=== PATIENT | male | born 1940 | race Caucasian/White ===

== ENCOUNTER 2023-11-07 11:55 | Emergency (ER) | payer MEDICARE, BC, SELFPAY ==
[2023-11-07 12:03] VITALS: BP 155/70
[2023-11-07 16:07] LABS: % Basophils 0.2 % (0-2); % Eosinophils 0.9 % (0-6); % Immature Granulocytes 0.2 % (0-0.5); % Lymphocytes 16.6 % (20.5-51.1); % Monocytes 6.5 % (1.7-9.3); % Neutrophils 75.6 % (42.2-75.2); Absolute Eosinophils 0.1 10^3/uL (0-0.7); Absolute Lymphocytes 1.8 10^3/uL (1.2-3.4); Absolute Monocytes 0.7 10^3/uL (0.1-0.6); Hemoglobin 13.8 g/dL (13.0-18.0); Mean Corp Hgb Conc. 32.9 g/dL (33.0-37.0); Mean Corpuscular Hgb 26.7 pg (27.0-31.0); Mean Corpuscular Volume 81.4 fL (80.0-94.0); Mean Platelet Volume 9.1 fL (7.4-10.4); Nucleated Red Blood Cells % 0 % (-); Platelet Count 179 10^3/uL (130-400); Red Blood Cell Count 5.16 10^6/uL (4.70-6.10); Red Cell Dist. Width 13.9 % (11.5-14.5); White Blood Cell Count 10.6 10^3/uL (4.8-10.8)
[2023-11-07 16:18] LABS: ALT (SGPT) 18 U/L (0-50); AST (SGOT) 28 U/L (17-59); Albumin 4.3 g/dl (3.5-5.0); Alkaline Phosphatase 103 U/L (38-126); Blood Urea Nitrogen 21 mg/dl (9-20); Calcium 9.4 mg/dl (8.4-10.2); Carbon Dioxide 29 mmol/L (22-30); Chloride 108 mmol/L (98-107); Glucose 107 mg/dl (70-99); Potassium 4.2 mmol/L (3.5-5.1); Sodium 139 mmol/L (135-145); Total Bilirubin 1.5 mg/dl (0.2-1.3); Total Protein 6.8 g/dl (6.3-8.2); eGFR > 60.00
--- NOTE | 2023-11-07 16:34 | ED.GENMED ---
History of Present Illness
General
Chief Complaint: Back Pain
Source: family
Exam Limitations: dementia
Time Seen by Provider: 11/07/23 15:03
Nursing documentation reviewed up to this point in time: agreed with
Travel History
Have you had any contact with someone who has COVID-19?: No
Do you have any symptoms of coronavirus? Fever > 100 degrees, chills, cough, shortness of breath, sore throat, loss of taste or smell, muscle aches, or headache?: No
History of Present Illness
History of Present Illness:
pt is a 82 y/o M with h/o dementia
here with R sided back pain after fall down 12 steps 2 days ago
witnessed by . she says he was trying to help her carry heavy detergent to the basement and he slipped falling onto his back and slid down the carpeted steps. he did not hit his head. was able to get up but has had a lot of pain with changing
positions
she gave him tramadol yesterday and today
he is still complaining of pain
worse with deep breathing
no fever, vomiting, cp, new confusion, change in mental status, thinners, new leg weakness.
Past History
Past History
ED Past Medical History: Arrthythmia (Bradycardia, paroxysmal SVT), CAD, CVA, GERD, HTN, Hypercholesterolemia, NIDDM, Hypothyroidism, Other (Vascular Dementia, chest pain), Other (present, peripheral arterial disease) and Other (nephrolithiasis,
migraine, herpes zoster in 2009, hiatal hernia, Kidney stones)
ED Past Surgical History: Cardiac (PTCA with stent 2009, stent placement distal aorta) and Other (Carotid endarterectomy in 2011, nasal surgery in 2016)
Social History
Tobacco: Non-smoker
Alcohol: None
Drug: None
Personal:
Living: with family
Employment: Retired
Family History
Family History: Other (reviewed and Noncontributory)
Phy Exam
Physical Exam
Physical Exam:
GENERAL: Alert , in no apparent distress, dementia
HEAD: NCAT
NECK: no midline tenderness, active ROM intact, no paraspinal muscle tenderness;
EYE: pupils equal and reactive, EOMs intact.
ENT: o/p clr, mmm. no hemotympanum
CARDIAC: Regular rate and rhythm, no edema
LUNGS: Clear breath sounds bilaterally, has pain with deep breathing, no acute respiratory distress, no wheezes/rales/rhonchi
ABDOMEN: Soft, mild RUQ tendreness; mostly righ tlower rib tenderness; no r/g, no cvat
NEUROLOGICAL: Alert and oriented x 1-2, no focal neuro deficits, CN intact, 5/5 strength, sensation intact
ableto stand and ambulate with assistnace, shuffles feet;
SKIN: Warm and dry,
MUSCULOSKELETAL: No edema, well perfused.
PSYCH: dementia but pleasant
Course
Orders/Labs/Results
Orders:
Orders
11/07/23 15:42
CT Chest/abd/pel W Iv Cont Urgent
Reason For Exam: fall down 12 steps, right back/flank pain
11/07/23 15:58
Complete Blood Count/With Diff Urgent
Comprehensive Metabolic Panel Urgent
11/07/23 16:37
CT Head W/o Iv Contrast Urgent
Comment:
Reason For Exam: fall down 12 steps
11/07/23 17:57
Acetaminophen [Tylenol] 650 mg PO NOW STA
Incentive Spirometry [Rx Incentive Spirometry] [RESP] Urgent
Frequency: q1h while awake
11/07/23 18:21
Losartan [Cozaar] 100 mg PO NOW STA
11/07/23 18:36
Tramadol HCl [Ultram] 50 mg PO NOW STA
11/07/23 19:31
HydrALAZINE [Apresoline] 5 mg IV NOW STA
11/07/23 19:33
Electrocardiogram (*1) Urgent
Reason for Study: Hypertension, Benign
EKG- Treatment ONCE
Abnormal Lab Results
11/07/23
15:58
MCH 26.7 L pg
(27.0-31.0)
MCHC 32.9 L g/dL
(33.0-37.0)
Absolute Neuts (auto) 8.0 H 10^3/uL
(1.4-6.5)
Absolute Monos (auto) 0.7 H 10^3/uL
(0.1-0.6)
Neutrophils % 75.6 H %
(42.2-75.2)
Lymphocytes % 16.6 L %
(20.5-51.1)
Chloride 108 H mmol/L
(98-107)
BUN 21 H mg/dl
(9-20)
Glucose 107 H mg/dl
(70-99)
Total Bilirubin 1.5 H mg/dl
(0.2-1.3)
11/07/23 15:58
11/07/23 15:58
Vital Signs
Initial and Last Documented VS:
Initial Vital Signs
Temp Pulse Resp BP Pulse Ox
98 F 55 16 155/70 98
11/07/23 12:03 11/07/23 12:03 11/07/23 12:03 11/07/23 12:03 11/07/23 12:03
Last Documented Vital Signs
Temp Pulse Resp BP Pulse Ox
98 F 63 18 180/72 100
11/07/23 12:03 11/07/23 19:40 11/07/23 18:29 11/07/23 20:39 11/07/23 18:29
MDM/Problems Addressed
Differential Diagnosis Includes:
rib fx, kidney injruy,liver injury
MDM/Problems Addressed:
82 yo M wwith dementia
here from home with who is primary historian
fall 2 days ago down 12 steps, slid on back/buttocks, no head strike
has chronically shuffling gait an dhas been able to walk but has pain
she gave 1 dose tramadol yesterday and 1 today
pain seems to be in right lower back
here pt is wel appearing
dementia but pleasant
right lower posterior an danterior rib tenderness, mild RUQ tendenress
d/w dr lux --> given age and limited history will CT
ct showed 2 nondisplaced lower rib fx, no ptx, no plerual effusion
pt was in some pain, missed dose of his losaratan
and was hypertnesive on dsicharge
200/90
other than pain in his rib no other symptoms
cr normal
initially given tramadol and his losartan which didn't really help
dw dr. lux - > .ekg frequent PACs, no ischeima
bp came down with small dose hdyralaxizne 180/80
pt's will check it at home
suspect it is sitautional
and related to pain
d/c home, tylenol, tramadol, incentive spirometer.
*Critical Care Note
Total Time (30-74mins, 75-104mins- exclusive of procedures): Not Applicable
ED Attending Note
-
Portions of this chart may have been created with voice recognition software.� Occasional wrong word or��sound alike� substitutions may have occurred due to the inherent limitations of voice recognition software.
Discharge Plan
Departure
Patient Disposition: Home (Routine Discharge)
Date of Disposition: 11/07/23
Time of Disposition: 20:48
Patient with high blood pressure during this ER visit?: Yes
Condition: Fair
Covid-19: Not Applicable
Discharge Problem:
Fracture, ribs
Instructions: Rib Fracture (DC), BLOOD PRESSURE
Prescriptions:
No Action
tamsulosin 0.4 MG capsule
0.4 mg PO HS
levothyroxine 75 MCG tablet
75 mcg PO DAILY AT 0700
cholecalciferol (vitamin D3) 1,000 UNITS tablet
2,000 units PO DAILY
donepezil 23 MG tablet
23 mg PO HS
memantine 28 MG capsule,sprinkle,ER 24hr
28 mg PO DAILY
acetaminophen [Tylenol Extra Strength] 500 MG tablet
1,000 mg PO Q6HPRN PRN (Reason: mild pain/headache/fever)
aspirin 81 MG tablet,delayed release (DR/EC)
81 mg PO HS
rosuvastatin 10 MG tablet
10 mg PO HS
omeprazole 20 MG capsule,delayed release(DR/EC)
20 mg PO DAILY
cholestyramine-aspartame [Cholestyramine Light] 1 PACKET powder in packet
1 packet PO BID
meclizine 12.5 MG tablet
12.5 mg PO Q8HPRN PRN (Reason: dizziness, vertigo) Qty: 15 0RF
losartan 50 MG tablet
100 mg PO HS
tramadol 50 MG tablet
50 mg PO Q8H PRN (Reason: PAIN)
Referrals:
Chyna Barraza MD [Family Provider] - Follow up in 2-3 days
Activity Restrictions/Additional Instructions:
Jame has 2 rib fractures, his 11th and 12th ribs on the right side. There is no other signs of trauma. You can give him an incentive spirometer to help him take deep breaths every 2 hours while awake.
For pain you can use Tylenol 3 times a day and you can also use his tramadol as needed.
Follow-up with the family doctor next week. Return to the ER for any worsening symptoms.
HIS BLOODP RESSURE WAS ELEVATED
BE SURE TO TAKE IT 2 TIMES A DAY AND RECORD NUMBERS
THIS NEEDS TO BE CHECKED WITH HIS FAMILY DOCTOR NEXT WEEK
RETURN FOR ANY COCNERNS
Interventions
Interventions:
*Risk Screen - Suicide Last Done: 11/07/23 12:38
*General Assessment Last Done: 11/07/23 12:38
*Neglect/Abuse Screening Last Done: 11/07/23 12:38
ED- Fall Risk Assessment Last Done: 11/07/23 12:38
*ED COVID-19 Vaccine History Last Done: 11/07/23 12:38
*Nursing Disposition Last Done: 11/07/23 21:01
ED-Musculoskeletal Assessment Last Done: 11/07/23 15:46
Discharge Date and Time
Discharge Date/Time: 11/07/23 21:01
[2023-11-07] MEDS: TYLENOL 650 MG PO (18:09)
[2023-11-07 18:29] VITALS: BP 211/80
[2023-11-07] MEDS: COZAAR 100 MG PO (18:29)
[2023-11-07] MEDS: ULTRAM 50 MG PO (18:41)
[2023-11-07] MEDS: APRESOLINE 5 MG IV (19:34)
[2023-11-07 19:40] VITALS: BP 201/82
[2023-11-07 20:39] VITALS: BP 180/72
== END 2023-11-07 21:01 | disposition home or self-care (01) ==
LOC: EMR 11:55
PROVIDERS: Physician Assistant; EMERGENCY PHYSICIAN Emergency Medicine; FAMILY PHYSICIAN Internal Medicine
DX: S22.31XA Fracture of one rib, right side, initial encounter for closed fracture (principal); W19.XXXA Unspecified fall, initial encounter; F03.90 Unspecified dementia, unspecified severity, without behavioral disturbance, psychotic disturbance, mood disturbance, and anxiety; R00.1 Bradycardia, unspecified; I47.10 Supraventricular tachycardia, unspecified; I25.10 Atherosclerotic heart disease of native coronary artery without angina pectoris; K21.9 Gastro-esophageal reflux disease without esophagitis; I10 Essential (primary) hypertension; E78.00 Pure hypercholesterolemia, unspecified; E03.9 Hypothyroidism, unspecified; E11.51 Type 2 diabetes mellitus with diabetic peripheral angiopathy without gangrene; Z86.73 Personal history of transient ischemic attack (TIA), and cerebral infarction without residual deficits; Z87.442 Personal history of urinary calculi; Z95.5 Presence of coronary angioplasty implant and graft
CPT/HCPCS: 99284; 96374; 70450; 71260; 74177; 80053; 85025; 93005; Q9967

== ENCOUNTER → 2023-11-13 09:30 | Outpatient (REF) | payer MEDICARE, BC, SELFPAY ==
[2023-11-13 12:57] LABS: ALT (SGPT) 22 U/L (0-50); AST (SGOT) 37 U/L (17-59); Albumin 3.8 g/dl (3.5-5.0); Alkaline Phosphatase 97 U/L (38-126); Blood Urea Nitrogen 19 mg/dl (9-20); Calcium 9.4 mg/dl (8.4-10.2); Carbon Dioxide 26 mmol/L (22-30); Chloride 111 mmol/L (98-107); Glucose 115 mg/dl (70-99); HDL Cholesterol 50 mg/dl; LDL Cholesterol, Calculated 48 mg/dl; Potassium 3.8 mmol/L (3.5-5.1); Sodium 142 mmol/L (135-145); Total Bilirubin 0.8 mg/dl (0.2-1.3); Total Cholesterol 129 mg/dl (50-199); Total Protein 6.1 g/dl (6.3-8.2); Triglyceride 155 mg/dl (10-149); Very Low Density Lipoprotein 31 mg/dl (0-30); eGFR 54.85
[2023-11-13 13:17] LABS: TSH Reflex To Free T4 1.45 uIU/ml (0.47-4.68)
[2023-11-13 13:29] LABS: % Basophils 0.7 % (0-2); % Eosinophils 2.8 % (0-6); % Immature Granulocytes 0.3 % (0-0.5); % Lymphocytes 28.3 % (20.5-51.1); % Monocytes 7.3 % (1.7-9.3); % Neutrophils 60.6 % (42.2-75.2); Absolute Basophils 0.1 10^3/uL (0-0.2); Absolute Eosinophils 0.2 10^3/uL (0-0.7); Absolute Lymphocytes 2.1 10^3/uL (1.2-3.4); Absolute Monocytes 0.5 10^3/uL (0.1-0.6); Absolute Neutrophils 4.5 10^3/uL (1.4-6.5); Hematocrit 40.9 % (39.0-52.0); Hemoglobin 13.4 g/dL (13.0-18.0); Mean Corp Hgb Conc. 32.8 g/dL (33.0-37.0); Mean Corpuscular Volume 82.3 fL (80.0-94.0); Mean Platelet Volume 10.1 fL (7.4-10.4); Nucleated Red Blood Cells % 0 % (-); Platelet Count 231 10^3/uL (130-400); Red Blood Cell Count 4.97 10^6/uL (4.70-6.10); Red Cell Dist. Width 14.3 % (11.5-14.5); White Blood Cell Count 7.4 10^3/uL (4.8-10.8)
== END ==
LOC: HWLAB 09:30
PROVIDERS: ATTENDING PHYSICIAN Internal Medicine
DX: Z23 Encounter for immunization (principal); I25.10 Atherosclerotic heart disease of native coronary artery without angina pectoris; I10 Essential (primary) hypertension; F03.90 Unspecified dementia, unspecified severity, without behavioral disturbance, psychotic disturbance, mood disturbance, and anxiety
CPT/HCPCS: 36415; 80053; 80061; 84443; 85025

== ENCOUNTER → 2024-06-24 11:24 | Outpatient (REF) | payer MEDICARE, BC, SELFPAY ==
[2024-06-24 15:38] LABS: ALT (SGPT) 19 U/L (0-50); AST (SGOT) 28 U/L (17-59); Albumin 3.8 g/dl (3.5-5.0); Alkaline Phosphatase 78 U/L (38-126); Blood Urea Nitrogen 18 mg/dl (9-20); Calcium 9.4 mg/dl (8.4-10.2); Carbon Dioxide 31 mmol/L (22-30); Chloride 105 mmol/L (98-107); Glucose 106 mg/dl (70-99); Potassium 4.1 mmol/L (3.5-5.1); Sodium 143 mmol/L (135-145); Total Bilirubin 1.1 mg/dl (0.2-1.3); Total Protein 5.9 g/dl (6.3-8.2); eGFR > 60.00
== END ==
LOC: HWLAB 11:24
PROVIDERS: ATTENDING PHYSICIAN Internal Medicine
DX: R63.4 Abnormal weight loss (principal)
CPT/HCPCS: 36415; 80053

== ENCOUNTER 2024-08-17 19:00 | Inpatient (IN) | payer MEDICARE, BC, SELFPAY ==
[2024-08-13 22:45] VITALS: BP 221/75
[2024-08-13 22:46] VITALS: BP 221/75
[2024-08-13 22:48] VITALS: BP 220/83
[2024-08-13 23:00] VITALS: BP 200/74
[2024-08-13 23:02] LABS: Urine Albumin 1+ (Neg - Trace); Urine Bilirubin Negative (Negative); Urine Character Clear (Clear); Urine Color Yellow; Urine Glucose Negative (Negative); Urine Ketone Trace (Negative); Urine Leukocyte Negative (Negative); Urine Nitrite Negative (Negative); Urine Occult Blood Trace (Negative); Urine Urobilinogen Negative (Neg - 1+)
[2024-08-13 23:11] LABS: % Basophils 0.4 % (0-2); % Eosinophils 1.2 % (0-6); % Immature Granulocytes 0.3 % (0-0.5); % Lymphocytes 16.9 % (20.5-51.1); % Monocytes 5.5 % (1.7-9.3); % Neutrophils 75.7 % (42.2-75.2); Absolute Eosinophils 0.1 10^3/uL (0-0.7); Absolute Lymphocytes 1.7 10^3/uL (1.2-3.4); Absolute Monocytes 0.6 10^3/uL (0.1-0.6); Absolute Neutrophils 7.7 10^3/uL (1.4-6.5); Hematocrit 42.8 % (39.0-52.0); Mean Corp Hgb Conc. 32.7 g/dL (33.0-37.0); Mean Corpuscular Volume 82.5 fL (80.0-94.0); Mean Platelet Volume 9.1 fL (7.4-10.4); Nucleated Red Blood Cells % 0 % (-); Platelet Count 193 10^3/uL (130-400); Red Blood Cell Count 5.19 10^6/uL (4.70-6.10); Red Cell Dist. Width 13.2 % (11.5-14.5); White Blood Cell Count 10.2 10^3/uL (4.8-10.8)
[2024-08-13 23:15] LABS: Urine Squamous Cell None seen /LPF (Few)
[2024-08-13 23:16] LABS: Urine Bacteria Few (Negative); Urine Red Blood Cell 0-2 /HPF (0-2); Urine White Cell 0-2 /HPF (0-5)
[2024-08-13 23:23] LABS: ALT (SGPT) 27 U/L (0-50); AST (SGOT) 52 U/L (17-59); Alkaline Phosphatase 93 U/L (38-126); Blood Urea Nitrogen 20 mg/dl (9-20); Calcium 9.4 mg/dl (8.4-10.2); Carbon Dioxide 28 mmol/L (22-30); Chloride 106 mmol/L (98-107); Estimated Creatinine Clearance 47 ml/min; Glucose 118 mg/dl (70-99); Potassium 4.6 mmol/L (3.5-5.1); Sodium 141 mmol/L (135-145); Total Protein 6.3 g/dl (6.3-8.2); eGFR > 60.00
--- NOTE | 2024-08-13 23:46 | ED.GENMED ---
History of Present Illness
General
Chief Complaint: Change in Mental Status
Source: patient, spouse and family
Exam Limitations: altered mental status and dementia
Time Seen by Provider: 08/13/24 23:08
Nursing documentation reviewed up to this point in time: agreed with
History of Present Illness
History of Present Illness:
83-year-old male with dementia presents with subacute mental status change accompanied by his spouse who he lives with and his daughter who lives nearby, apparently for the past week he has not been eating very much, increasingly confused, more
withdrawn, apparently slipped off the couch family could not get him up EMS was called, no noted fevers or chills, no coughing no vomiting
Past History
Past History
ED Past Medical History: Arrthythmia (Bradycardia, paroxysmal SVT), CAD, CVA, GERD, HTN, Hypercholesterolemia, NIDDM, Hypothyroidism, Other (Vascular Dementia, chest pain), Other (present, peripheral arterial disease) and Other (nephrolithiasis,
migraine, herpes zoster in 2009, hiatal hernia, Kidney stones)
ED Past Surgical History: Cardiac (PTCA with stent 2009, stent placement distal aorta) and Other (Carotid endarterectomy in 2011, nasal surgery in 2016)
Social History
Tobacco: Non-smoker
Alcohol: None
Drug: None
Personal:
Living: with family
Employment: Retired
Family History
Family History: Other (reviewed and Noncontributory)
Review of Systems
Review of Systems
All Other Systems: Not applicable
Constitutional: Denies fever or fatigue
Phy Exam
Physical Exam
Physical Exam:
Physical Exam
General: Elderly male demented confused no overt signs of head or neck trauma
Neck: No tongue bite lips are slightly dry
Heart: s1/s2 regular rate and rhythm, no murmur. equal radial pulses.
Lungs: no acute respiratory distress. clear bilaterally
Abdomen: Soft nontender
Neuro: Globally weak answer simple commands oriented to person no rigidity
Skin: no rash
Psychiatric: Affect is flat
Extremities: No pain with range of motion of the hips
Course
Orders/Labs/Results
Orders:
Orders
08/13/24 22:44
CT Head W/o Iv Contrast Urgent
Comment:
Reason For Exam: change in mentation
08/13/24 22:45
Straight cath- Treatment ONCE
08/13/24 22:54
CMP [Comprehensive Metabolic Panel] Urgent
Complete Blood Count/With Diff Urgent
Creatine Phosphokinase Urgent
Comment: ADD ON
Urinalysis Reflex To Culture Urgent
Date Specimen was Collected: 08/13/24
Time Specimen was Collected: 22:45
Urine Microscopic Reflex Cult Urgent
08/13/24 23:46
0.9% Sodium Chloride 1000 ml [Nss] 1,000 ml IV BOLUS
08/13/24 23:47
Add On- LAB Urgent
Tests Added?: cpk
CR Chest Portable - 1 View Urgent
Comment:
Reason For Exam: confusion
Reason Study Needs to be Portable: Patient Unstable
08/13/24 23:55
COVID-19 Antigen Urgent
Source: Nasal Swab
Influenza A+B Rapid Molecular Urgent
LUCIANO Source: Nasal Swab
Specimen Description:
08/14/24 00:30
Case Management Consult ONCE
Case Management Consult: Discharge Planning
Request for Physical Therapy [NOTICE] Routine
08/14/24 01:02
HydrALAZINE [Apresoline] 10 mg IV NOW STA
Losartan [Cozaar] 100 mg PO NOW STA
08/14/24 06:00
Physical Therapy Consult [Pt Eval And Treat] IN AM
Activity Level: Out of Bed-Early Mobility
Abnormal Lab Results
08/13/24
22:54
MCHC 32.7 L g/dL
(33.0-37.0)
Absolute Neuts (auto) 7.7 H 10^3/uL
(1.4-6.5)
Neutrophils % 75.7 H %
(42.2-75.2)
Lymphocytes % 16.9 L %
(20.5-51.1)
Glucose 118 H mg/dl
(70-99)
Creatine Kinase 816 H U/L
(55-170)
Urine Ketones Trace A
(Negative)
Ur Occult Blood Reflex Trace A
(Negative)
Urine Bacteria (Reflex) Few A
(Negative)
Urine Albumin (Reflex) 1+ A
(Neg - Trace)
08/13/24 22:54
08/13/24 22:54
Vital Signs
Initial and Last Documented VS:
Initial Vital Signs
Temp Pulse Resp BP Pulse Ox
99.0 F 61 12 221/75 100
08/13/24 22:45 08/13/24 22:45 08/13/24 22:45 08/13/24 22:45 08/13/24 22:45
Last Documented Vital Signs
Temp Pulse Resp BP Pulse Ox
99.0 F 63 16 173/116 99
08/13/24 22:45 08/14/24 01:37 08/14/24 01:30 08/14/24 01:37 08/14/24 00:15
*Critical Care Note
Total Time (30-74mins, 75-104mins- exclusive of procedures): Not Applicable
ED Attending Note
-
Portions of this chart may have been created with voice recognition software.� Occasional wrong word or��sound alike� substitutions may have occurred due to the inherent limitations of voice recognition software.
Discharge Plan
Departure
Patient Disposition: Admit
Date of Disposition: 08/14/24
Time of Disposition: 00:39
Admit to: Med/Surg
Presentation/result/management discussed w/ accepting MD/DO: Hospitalist
Patient with high blood pressure during this ER visit?: Yes
Condition: Fair
Discharge Problem:
Generalized weakness, Confusion
Prescriptions:
No Action
tamsulosin 0.4 MG capsule
0.4 mg PO HS
levothyroxine 75 MCG tablet
75 mcg PO DAILY AT 0700
cholecalciferol (vitamin D3) 1,000 UNITS tablet
2,000 units PO DAILY
donepezil 23 MG tablet
23 mg PO HS
memantine 28 MG capsule,sprinkle,ER 24hr
28 mg PO DAILY
acetaminophen [Tylenol Extra Strength] 500 MG tablet
1,000 mg PO Q6HPRN PRN (Reason: mild pain/headache/fever)
aspirin 81 MG tablet,delayed release (DR/EC)
81 mg PO HS
rosuvastatin 10 MG tablet
10 mg PO HS
omeprazole 20 MG capsule,delayed release(DR/EC)
20 mg PO DAILY
cholestyramine-aspartame [Cholestyramine Light] 1 PACKET powder in packet
1 packet PO BID
meclizine 12.5 MG tablet
12.5 mg PO Q8HPRN PRN (Reason: dizziness, vertigo) Qty: 15 0RF
losartan 50 MG tablet
100 mg PO HS
tramadol 50 MG tablet
50 mg PO Q8H PRN (Reason: PAIN)
Referrals:
Dusty Enrique MD [Family Provider] -
Interventions
Interventions:
*Risk Screen - Suicide Last Done: 08/13/24 22:45
*General Assessment Last Done: 08/13/24 22:45
*Neglect/Abuse Screening Last Done: 08/13/24 22:45
ED- Fall Risk Assessment Last Done: 08/14/24 00:17
*ED COVID-19 Vaccine History Last Done: 08/13/24 22:45
ED- Neurological Assessment Last Done: 08/14/24 00:17
ED- Cardiac Assessment Last Done: 08/14/24 00:17
Discharge Date and Time
Print Language: TURKMEN
[2024-08-13] MEDS: NSS 1000 IV (23:56)
[2024-08-14] VITALS (17 sets, daily range): BP systolic 132–215; BP diastolic 56–116
[2024-08-14 00:32] LABS: COVID-19 Antigen Negative (Negative)
[2024-08-14 00:59] LABS: Creatine Phosphokinase 816 U/L (55-170)
[2024-08-14] MEDS: COZAAR 100 MG PO ×2 (01:37→21:08)
[2024-08-14] MEDS: APRESOLINE 10 MG IV (01:37)
--- NOTE | 2024-08-14 01:45 | EDRN ---
Patients family updated on patient and admission status
--- NOTE | 2024-08-14 02:30 | EDRN ---
Report given to JONO Archer, patients family at bedside, waiting on admission
--- NOTE | 2024-08-14 03:36 | HPS.HSE ---
Family Physician
-
Family Physician: Dusty Enrique
Chief Complaint
-
Increased Confusion / Frequent Falls
History of Present Illness
Patient is an 83y M with PMH significant for senile dementia, hypertension and ASCVD / prior stroke who presents to ED for evaluation of increasing confusion and ambulatory dysfunction. History obtained from family at the bedside. Patient is
unable to contribute to history given baseline dementia. Family states that patient has been more confused than usual over the past several days. He has had increased frequency of falls. He is unsteady at baseline and does not use a walker
despite encouragement / reminders from family. Patient has suffered several falls as a result. No noted head injury / trauma. No apparent LOC / syncope.
Family denies any specific / focal symptoms of late including cough, dyspnea, N/V or complaints.
Patient does have chronic diarrhea x years for which he currently takes colestipol. No new meds or changes in medications recently.'
No known sick contacts.
Medical History
Past Medical History
Past Medical History: Reports Other
Additional Past Medical History:
Senile Dementia
Hypertension
Hypothyroidism
ASCVD (CVA, Carotid Stenosis, CAD, PAD)
GERD
Rosacea
Migraine Headaches
SVT
Nephrolithiasis
Past Surgical History: Reports Other
Additional Past Surgical History:
Left CEA
Septoplasty
Social History
Tobacco: Former Smoker (Quit smoking > 50 years ago.)
Alcohol: Occasional (Rare)
Drug: None
Living: With Family
Family History
Family History: Not pertinent
Allergies / Home Medications
Allergies reflects when Allergies were last updated in [facility].
Home Medications with original date entered in [facility]
Allergy/Medication List:
Allergies
Allergy/AdvReac Type Severity Reaction Status Date / Time
No Known Allergies Allergy Verified 08/13/24 22:53
Home Medications
tamsulosin 0.4 mg capsule 0.4 mg PO HS Urinary issue 03/30/10
cholecalciferol (vitamin D3) 25 mcg (1,000 unit) tablet 2,000 units PO DAILY Supplement 05/24/15
levothyroxine 75 mcg tablet 75 mcg PO DAILY AT 0700 Thyroid 05/24/15
donepezil 23 mg tablet 23 mg PO HS DEMENTIA 06/02/16
memantine 28 mg capsule sprinkle,extended release 24hr 28 mg PO DAILY DEMENTIA 06/02/16
rosuvastatin 10 mg tablet 10 mg PO HS High cholesterol 04/08/19
omeprazole 20 mg capsule,delayed release 20 mg PO DAILY Gastrointestinal issue 03/06/20
losartan 50 mg tablet 100 mg PO HS 09/25/20
colestipol 1 gram tablet 2 g PO BID 08/14/24
Review of Systems
-
History Source: Family
A 12 point ROS was completed and negative except as noted: Yes
Constitutional: Denies Fever
EENT: Denies Sore Throat
Respiratory: Denies Cough or Trouble Breathing
Cardiac: Denies Chest Pain
Abdomen/GI: Reports Diarrhea (chronic); Denies Abdominal Pain, Nausea, Vomiting, Bloody Stools or Black Stools
: Denies Flank Pain or Bleeding
Musculoskeletal: Denies Joint Pain or Edema
Neurological: Reports Other (Falls / Gait dysfunction)
Psych: Reports Dementia
Physical Exam
Vital Signs
Vital Signs
Temp Pulse Resp BP Pulse Ox
99.0 F 65 17 177/67 99
08/13/24 22:45 08/14/24 02:45 08/14/24 02:30 08/14/24 02:42 08/14/24 00:15
Physical Exam
General: Other (83y M with evident dementia. Awake and interactive. Follows commands. Somewhat restless / pulling at medical devices.)
HEENT: Moist mucous membranes and PERRLA
Respiratory: Clear; No Wheezes, Rales or Rhonchi
Cardiac: S1/S2 and Regular Rhythm; No Murmur
GI: Soft, Non Tender, Non Distended and Normal Bowel Sounds
Musculoskeletal: No Clubbing, No Cyanosis and Other (Trace ankle edema bilaterally.)
Neuro: Awake, Alert and Nonfocal/grossly intact; No Oriented
Laboratory Results
-
08/13/24 22:54
08/13/24 22:54
Laboratory Results
Total Bilirubin 1.0 mg/dl (0.2-1.3) 08/13/24 22:54
AST 52 U/L (17-59) 08/13/24:54
ALT 27 U/L (0-50) 08/13/24:54
Alkaline Phosphatase 93 U/L (38-126) 08/13/24 22:54
Impression/Plan
-
A/P: Patient is an 83y M with PMH significant for senile dementia, prior CVA and hypertension who presents to ED for evaluation of recent increase in confusion, gait dysfunction and frequent falls.
Senile Dementia
Ambulatory Dysfunction
Frequent Falls secondary to the above
- Observe overnight for further evaluation and treatment.
- No evidence at present of any acute process, infection, etc.
- ? progression of underlying dementia.
- PT / OT evaluations.
- CM eval for discharge planning / placement.
- Continue current dementia med regimen for now (see below).
Chronic Diarrhea
- Multiple years of symptoms - currently controlled with colestipol.
- Will continue colestipol and follow frequency of stooling.
- Would D/C PPI.
- Would also consider cessation of Namenda / Aricept which may also be contributing to diarrhea and are likely of little benefit in regards to dementia.
ASCVD
- Stable. No new focal deficits, chest pain, etc.
- No longer on ASA per outpatient med list.
- Continue statin therapy.
Benign Hypertension
- BP elevated in the ED.
- Continue losartan and adjust regimen as needed for improved control.
- IV hydralazine PRN for now.
Hypothyroidism
- Continue current T4 supplementation.
- Update TFTs.
BPH
- Continue tamsulosin.
- Bladder scan protocol.
GERD
- Trial off of PPI as noted above.
- Monitor for any apparent reflux / discomfort / etc.
DVT Prophylaxis: SCDs
Code Status: DNR
[2024-08-14 06:19] LABS: Hematocrit 40.7 % (39.0-52.0); Hemoglobin 13.5 g/dL (13.0-18.0); Mean Corp Hgb Conc. 33.2 g/dL (33.0-37.0); Mean Corpuscular Hgb 27.6 pg (27.0-31.0); Mean Corpuscular Volume 83.2 fL (80.0-94.0); Mean Platelet Volume 9.2 fL (7.4-10.4); Platelet Count 175 10^3/uL (130-400); Red Blood Cell Count 4.89 10^6/uL (4.70-6.10); Red Cell Dist. Width 13.2 % (11.5-14.5)
[2024-08-14 06:46] LABS: Blood Urea Nitrogen 17 mg/dl (9-20); Calcium 8.8 mg/dl (8.4-10.2); Carbon Dioxide 28 mmol/L (22-30); Chloride 107 mmol/L (98-107); Estimated Creatinine Clearance 86 ml/min; Glucose 95 mg/dl (70-99); Potassium 3.9 mmol/L (3.5-5.1); Sodium 139 mmol/L (135-145); eGFR > 60.00
[2024-08-14] MEDS: SEROQUEL 12.5 MG PO (07:29)
[2024-08-14] MEDS: SYNTHROID 75 MCG PO (07:29)
--- NOTE | 2024-08-14 08:47 | W.PN.HOSP.TC ---
Today's Communication/Plan
-
Seroquel prescribed monitor blood pressure trend
Attempt PT/OT evaluation
Protective intervention
Assessment / Plan
Assessment / Plan
Impression:
Patient is an 83y M with PMH significant for senile dementia, prior CVA and hypertension who presents to ED for evaluation of recent increase in confusion, gait dysfunction and frequent falls.
Progressive dementia
Agitation.
Ambulatory dysfunction with frequent falls
Accelerated hypertension/hypertensive urgency likely secondary to agitation
Other conditions:
Chronic diarrhea
ASCVD.
Benign hypertension
Hypothyroidism
Hypothyroidism
BPH
GERD
Plan:
Senile dementia
Ambulatory dysfunction.
Frequent falls.
Initial workup with no evidence of acute process including infection, TIA/CVA.
CT scan consistent with chronic vascular changes without acute process
Agitated.
Initiated on Seroquel.
Attempt PT/OT evaluation.
Case management consultation for possible placement
Continue preadmission memantine and donepezil.
Hypertension
Hypertensive urgency likely secondary to agitation.
Continue losartan
Continue IV hydralazine.
Monitor blood pressure trend with agitation control initiated on Seroquel
May need further adjustment with addition of second agent
ASCVD
- Stable. No new focal deficits, chest pain, etc.
- No longer on ASA per outpatient med list.
- Continue statin therapy.
Chronic Diarrhea
- Multiple years of symptoms - currently controlled with colestipol.
- Will continue colestipol and follow frequency of stooling.
- Would D/C PPI.
- Would also consider cessation of Namenda / Aricept which may also be contributing to diarrhea and are likely of little benefit in regards to dementia.
Hypothyroidism
- Continue current T4 supplementation.
- Update TFTs.
BPH
- Continue tamsulosin.
- Bladder scan protocol.
GERD
- Trial off of PPI as noted above.
- Monitor for any apparent reflux / discomfort / etc.
DVT Prophylaxis: SCDs
Code Status: DNR
Anticipated Discharge: 24 - 48 hours
Subjective/Interval History
-
Date of Service: August 14, 2024
Objective Data
-
Labs:
Laboratory Results
08/13/24 08/14/24
22:54 06:06
WBC 10.2 10.0
Hgb 14.0 13.5
Hct 42.8 40.7
Plt Count 193 175
Sodium 141 139
Potassium 4.6 3.9
Chloride 106 107
Carbon Dioxide 28 28
BUN 20 17
Creatinine 1.1 0.5 L
Glucose 118 H 95
Calcium 9.4 8.8
Total Bilirubin 1.0
AST 52
ALT 27
Alkaline Phosphatase 93
Vital Signs:
Vital Signs
Temp Pulse Resp BP Pulse Ox
99.0 F 92 20 193/76 98
08/13/24 22:45 08/14/24 07:36 08/14/24 07:15 08/14/24 07:00 08/14/24 06:45
I&O
08/13/24 08/14/24 08/15/24
06:59 06:59 06:59
Output Total 220 / 220
Balance -220 / -220
Physical Exam
-
General: Well Developed, No Apparent Distress and Other (Disheveled)
HEENT: Normocephalic, Atraumatic and Moist Mucous Membranes
Respiratory: Clear to Auscultation
Cardiac: Regular Rhythm and S1/S2; Negative Murmur, Rub or Gallop
GI: Soft, Nontender, Nondistended and Normal Bowel Sounds; Negative Organomegaly
Rectal: Deferred by Provider
Musculoskeletal: No Clubbing, No Cyanosis and No Edema
Skin: Negative Rash
Neuro: Awake, Alert, Nonfocal/Grossly Intact and Other (Not conversive)
[2024-08-14] MEDS: APRESOLINE 5 MG IV ×2 (09:00→19:43)
--- NOTE | 2024-08-14 13:45 | PTCARENOTE ---
Patient here for from ED with ambulatory dysfunction. Frequent falls at home. Patient oriented to self, agitated and aggressive towards staff while completing incontinent care. Bed alarm active.
[2024-08-14] MEDS: CRESTOR 10 MG PO (21:08)
[2024-08-14] MEDS: FLOMAX 0.4 MG PO (21:08)
[2024-08-14] MEDS: TYLENOL 650 MG PO (21:09)
[2024-08-15 03:30] VITALS: BP 157/64
[2024-08-15] MEDS: SYNTHROID 75 MCG PO (06:11)
[2024-08-15 07:50] VITALS: BP 112/67
--- NOTE | 2024-08-15 08:38 | CM ---
Addendum entered by Kristen Contreras 08/15/24 15:58:
CM met with dr Thompson. Discussed family may be interested in hospice. Family will discuss and update RN tomorrow. CM rec's Psych eval for aggression management. Pt must be off all restraints, 1:1 and VMT as well as without IM Haldol/Ativan within
24-48hrs of discharge to SNF/LTC.
Addendum entered by Kristen Contreras 08/15/24 13:41:
RN reached out to CM regarding pt. Family stating that they are aware he was not able to completely participate in PT. They would like for PT to attempt to re-evaluate pt. If he is unable or refusing again, family to discuss LTC placement. CM/SW
following on Friday will need to f/u to discuss further with and/or dtr.
CM will continue to follow to ensure a safe and timely dc.
Original Note:
CM reviewed chart. Pt w/pmhx dementia who presented from home for increased confusion and agitation. Per PT eval -' Patient aggressive throughout session and not able to follow cues for safety and physically pushing at therapists when sitting. Not
safe at this time to progress functional assessment.' Care on-going.
CM/SW will continue to follow to ensure a safe and timely dc when medically stable. Pt confused-unable to sign/understand IMM. Please reconsult CM/SW when pt behaviors have improved and PT is able to appropriately evaluate pt.
[2024-08-15 11:13] VITALS: BP 122/52
--- NOTE | 2024-08-15 13:43 | W.PN.HOSP.TC ---
Today's Communication/Plan
-
Case management consultation for placement with option of possible rehab if cooperative with physical therapy, long-term placement with transition to hospice (advanced dementia with failure to thrive) if not.
Plan of care discussed with patient's family at the bedside
Assessment / Plan
Assessment / Plan
Impression:
Patient is an 83y M with PMH significant for senile dementia, prior CVA and hypertension who presents to ED for evaluation of recent increase in confusion, gait dysfunction and frequent falls.
Progressive dementia
Agitation.
Ambulatory dysfunction with frequent falls
Accelerated hypertension/hypertensive urgency likely secondary to agitation
Other conditions:
Chronic diarrhea
ASCVD.
Benign hypertension
Hypothyroidism
Hypothyroidism
BPH
GERD
Plan:
Senile dementia
Ambulatory dysfunction.
Frequent falls.
Initial workup with no evidence of acute process including infection, TIA/CVA.
CT scan consistent with chronic vascular changes without acute process
Agitated initially on admission improved with a single dose of Seroquel and now close to be somnolent.
Change Seroquel to at bedtime
Stop donepezil given interaction and risk of QT prolongation
Attempt PT/OT evaluation.
Case management consultation for possible placement
Continue preadmission memantine
Case management consultation for placement with option of possible rehab if cooperative with physical therapy, long-term placement with transition to hospice (advanced dementia with failure to thrive) if not.
Hypertension
Hypertensive urgency likely secondary to agitation.
Continue losartan
Continue IV hydralazine.
Monitor blood pressure trend with agitation control initiated on Seroquel
May need further adjustment with addition of second agent
ASCVD
- Stable. No new focal deficits, chest pain, etc.
- No longer on ASA per outpatient med list.
- Continue statin therapy.
Chronic Diarrhea
- Multiple years of symptoms - currently controlled with colestipol.
- Will continue colestipol and follow frequency of stooling.
- Would D/C PPI.
- Would also consider cessation of Namenda / Aricept which may also be contributing to diarrhea and are likely of little benefit in regards to dementia.
Hypothyroidism
- Continue current T4 supplementation.
- Update TFTs.
BPH
- Continue tamsulosin.
- Bladder scan protocol.
GERD
- Trial off of PPI as noted above.
- Monitor for any apparent reflux / discomfort / etc.
DVT Prophylaxis: SCDs
Code Status: DNR
Anticipated Discharge: 24 - 48 hours
Subjective/Interval History
-
Date of Service: August 15, 2024
Objective Data
-
Vital Signs:
Vital Signs
Temp Pulse Resp BP Pulse Ox
97.5 F 54 17 122/52 99
08/15/24 11:13 08/15/24 11:13 08/15/24 11:13 08/15/24 11:13 08/15/24 11:13
I&O
08/14/24 08/15/24 08/16/24
06:59 06:59 06:59
Intake Total 240 / 240
Output Total 220 / 220 120 / 120
Balance -220 / -220 120 / 120
Physical Exam
-
General: Well Developed, No Apparent Distress and Other (Disheveled)
HEENT: Normocephalic, Atraumatic and Moist Mucous Membranes
Respiratory: Clear to Auscultation
Cardiac: Regular Rhythm and S1/S2; Negative Murmur, Rub or Gallop
GI: Soft, Nontender, Nondistended and Normal Bowel Sounds; Negative Organomegaly
Rectal: Deferred by Provider
Musculoskeletal: No Clubbing, No Cyanosis and No Edema
Skin: Negative Rash
Neuro: Awake, Alert, Oriented (Name only) and Nonfocal/Grossly Intact
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
[2024-08-15 15:25] VITALS: BP 175/68
[2024-08-15] MEDS: HALDOL 2 MG IV (15:26)
[2024-08-15 19:29] VITALS: BP 194/70
[2024-08-15] MEDS: APRESOLINE 5 MG IV (21:00)
[2024-08-15] MEDS: FLOMAX 0.4 MG PO (21:03)
[2024-08-15] MEDS: CRESTOR 10 MG PO (21:03)
[2024-08-15] MEDS: COZAAR 100 MG PO (21:03)
[2024-08-15] MEDS: TYLENOL 650 MG PO (21:34)
[2024-08-15 23:10] VITALS: BP 154/81
[2024-08-16] VITALS (7 sets, daily range): BP systolic 133–162; BP diastolic 51–107
[2024-08-16] MEDS: SYNTHROID 75 MCG PO (05:00)
--- NOTE | 2024-08-16 09:17 | PTCARENOTE ---
pt calm, restraints removed per family request. will continue to monitor
[2024-08-16 10:43] LABS: Blood Urea Nitrogen 22 mg/dl (9-20); Calcium 9.3 mg/dl (8.4-10.2); Carbon Dioxide 27 mmol/L (22-30); Chloride 105 mmol/L (98-107); Estimated Creatinine Clearance 51 ml/min; Glucose 99 mg/dl (70-99); Potassium 4.5 mmol/L (3.5-5.1); Sodium 142 mmol/L (135-145); eGFR > 60.00
--- NOTE | 2024-08-16 14:33 | W.PN.HOSP.TC ---
Today's Communication/Plan
-
Goals of care discussion with patient's family at the bedside
Patient is a 83 years old male with advanced dementia, failure to thrive, ambulatory dysfunction, significant aspiration risk.
Family is looking for long-term placement and given progressive deterioration with risk for hospital readmission and dementia complications not limited to infection with consider hospice care at the facility.
Maintain comfort feeding, family accepting aspiration risk.
Case management and hospice consultation to assist with discharge planning.
Assessment / Plan
Assessment / Plan
Impression:
Patient is an 83y M with PMH significant for senile dementia, prior CVA and hypertension who presents to ED for evaluation of recent increase in confusion, gait dysfunction and frequent falls.
Progressive dementia
Agitation.
Ambulatory dysfunction with frequent falls
Accelerated hypertension/hypertensive urgency likely secondary to agitation
Aspiration risk
Other conditions:
Chronic diarrhea
ASCVD.
Benign hypertension
Hypothyroidism
Hypothyroidism
BPH
GERD
Plan:
Senile dementia
Ambulatory dysfunction.
Frequent falls.
Initial workup with no evidence of acute process including infection, TIA/CVA.
CT scan consistent with chronic vascular changes without acute process
Agitated initially on admission improved with a single dose of Seroquel and now close to be somnolent.
Change Seroquel to at bedtime
Stop donepezil given interaction and risk of QT prolongation
Attempt PT/OT evaluation.
Case management consultation for possible placement
Continue preadmission memantine
Case management consultation for placement with option of possible rehab if cooperative with physical therapy, long-term placement with transition to hospice (advanced dementia with failure to thrive) if not.
Hypertension
Hypertensive urgency likely secondary to agitation.
Continue losartan
Continue IV hydralazine.
Monitor blood pressure trend with agitation control initiated on Seroquel
May need further adjustment with addition of second agent
ASCVD
- Stable. No new focal deficits, chest pain, etc.
- No longer on ASA per outpatient med list.
- Continue statin therapy.
Chronic Diarrhea
- Multiple years of symptoms - currently controlled with colestipol.
- Will continue colestipol and follow frequency of stooling.
- Would D/C PPI.
- Would also consider cessation of Namenda / Aricept which may also be contributing to diarrhea and are likely of little benefit in regards to dementia.
Hypothyroidism
- Continue current T4 supplementation.
- Update TFTs.
BPH
- Continue tamsulosin.
- Bladder scan protocol.
GERD
- Trial off of PPI as noted above.
- Monitor for any apparent reflux / discomfort / etc.
DVT Prophylaxis: SCDs
Code Status: DNR
Goals of care discussion with patient's family at the bedside
Patient is a 83 years old male with advanced dementia, failure to thrive, ambulatory dysfunction, significant aspiration risk.
Family is looking for long-term placement and given progressive deterioration with risk for hospital readmission and dementia complications not limited to infection with consider hospice care at the facility.
Anticipated Discharge: 24 - 48 hours
Subjective/Interval History
-
Date of Service: August 16, 2024
Objective Data
-
Labs:
Laboratory Results
08/16/24
09:53
Sodium 142
Potassium 4.5
Chloride 105
Carbon Dioxide 27
BUN 22 H
Creatinine 1.0
Glucose 99
Calcium 9.3
Vital Signs:
Vital Signs
Temp Pulse Resp BP Pulse Ox
97.2 F 80 16 142/61 98
08/16/24 11:15 08/16/24 11:15 08/16/24 11:15 08/16/24 11:15 08/16/24 11:15
I&O
08/15/24 08/16/24 08/17/24
06:59 06:59 06:59
Intake Total 240 / 240 120 / 120
Output Total 120 / 120
Balance 120 / 120 120 / 120
Physical Exam
-
General: Well Developed, No Apparent Distress and Other (Disheveled)
HEENT: Normocephalic, Atraumatic and Moist Mucous Membranes
Respiratory: Clear to Auscultation
Cardiac: Regular Rhythm and S1/S2; Negative Murmur, Rub or Gallop
GI: Soft, Nontender, Nondistended and Normal Bowel Sounds; Negative Organomegaly
Rectal: Deferred by Provider
Musculoskeletal: No Clubbing, No Cyanosis and No Edema
Skin: Negative Rash
Neuro: Awake, Alert, Oriented (Name only) and Nonfocal/Grossly Intact
--- NOTE | 2024-08-16 15:23 | CM ---
CM reviewed chart, received consult for Hospice. Patient seen bedside with and two daughter, Angie Hi [phone] and Claribel Roma [phone]. Family considering both options of home hospice and hospice at a LTC facility. CM
explained with patients insurance, hospice services would be covered, room and board would be private pay, facilities will require financial applications to be completed. ([employer]- $550 a day). CM discussed facilities will likely require patient to
be off the restraints, without behaviors for 24-48 hours. TT zabrina Montgomery with Hospice, will call patients daughter tomorrow, contact center specialist- patients daughter, Angie. Family asking that PT please not work with patient. CM discussed if patient
returns home on hospice, family can hire additional private caregivers if needed. CM provided contact information to family. CM will continue to follow for all discharge planning needs.
Plan; hospice- family to speak with Hospice tomorrow, home hospice vs hospice at LTC.
--- NOTE | 2024-08-16 15:33 | CS.PSYCHR ---
Consult Summary - Psychiatry
-
Pt is an 83 yo male with advanced dementia, admitted with increased confusion and falling for several days. Pt noted to have unsteady gait at baseline. Pt was given Seroquel 12.5 mg at 729 am 08/14 for agitation; family reports this is a new med.
Pt became excessively sedated. Seroquel order changed to HS prn. Pt also noted to be Aricept and Namenda- also on family's list of meds. Pt seen resting in bed, currently calm with family present. Pt unable to give any history.
PMH significant for senile dementia, hypertension and ASCVD / prior stroke, Hypothyroidism, GERD, Rosacea, Migraine Headaches, SVT, Nephrolithiasis
Psych Hx: dementia; otherwise none reported
SH: lives with spouse, dtr lives nearby
MSE: awake, making some eye contact, resting calmly in bed, no agitation at present with family in the room. No signs of psychosis. Insight appears poor. Not able to give history
Imp: Dementia with agitation
Rec: continue trial of Seroquel low dose in the pm/HS prn. Would resume existing Aricept and Namenda- probably at lower than reported dose; stopping these when established can worsen behavior disturbance
will follow
[2024-08-16] MEDS: NAMENDA 10 MG PO (19:51)
[2024-08-16 21:33] LABS: Glucose - Point of Care 117 mg/dl (70-99)
[2024-08-16] MEDS: COZAAR PO (22:02)
[2024-08-16] MEDS: FLOMAX PO (22:03)
[2024-08-16] MEDS: CRESTOR PO (22:03)
[2024-08-16 22:04] LABS: % Basophils 0.4 % (0-2); % Eosinophils 1.3 % (0-6); % Immature Granulocytes 0.2 % (0-0.5); % Lymphocytes 19.1 % (20.5-51.1); % Monocytes 8.5 % (1.7-9.3); % Neutrophils 70.5 % (42.2-75.2); Absolute Eosinophils 0.1 10^3/uL (0-0.7); Absolute Lymphocytes 1.9 10^3/uL (1.2-3.4); Absolute Monocytes 0.9 10^3/uL (0.1-0.6); Absolute Neutrophils 7.1 10^3/uL (1.4-6.5); Hematocrit 43.6 % (39.0-52.0); Mean Corp Hgb Conc. 32.1 g/dL (33.0-37.0); Mean Corpuscular Hgb 26.8 pg (27.0-31.0); Mean Corpuscular Volume 83.5 fL (80.0-94.0); Mean Platelet Volume 8.8 fL (7.4-10.4); Nucleated Red Blood Cells % 0 % (-); Platelet Count 232 10^3/uL (130-400); Red Blood Cell Count 5.22 10^6/uL (4.70-6.10); Red Cell Dist. Width 13.4 % (11.5-14.5)
--- NOTE | 2024-08-16 22:06 | W.PN.UPDATE ---
Addendum entered and electronically signed by JESS Van 08/17/24 01:13:
Additional information/followup for RR.
Patient was suctioned for approximately 50 mls of white secretions during rapid response. Consider possible aspiration.
CXR showed no acute cardiopulmonary process. CBC unremarkable. BUN slightly elevated 22->32. Lactic acid 1.1. Troponin 0.019. Pro BNP 388.
Patient resting in bed on follow up visit. Remains on 2L NC, O2 sat 96%. Per RN, mentation appears to be at baseline. Patient with no complaints/concerns at this time.
Original Note:
Update Note
Progress Note Update
Rapid response called at 2138. Pt found w/foamy secretions from mouth and was more lethargic.
VS stable: BP 145/88, HR 99, 88-89% on room air placed 2L O2 NC sat 93%, temp 98.8 ax, 100.6 rectal, Glucose 117.
Ordered Portable CXR, CBC, BMP, BNP, Lactic, Speech/swallow eval
Patient NPO except meds.
Patient responsive to questions, per RN orientation back to baseline.
[2024-08-16 22:12] LABS: INR 1.08; PT 14.4 Sec (11.4-14.6)
[2024-08-16 22:13] LABS: APTT 32.8 Sec (23.4-35.0)
[2024-08-16 22:16] LABS: ALT (SGPT) 26 U/L (0-50); AST (SGOT) 48 U/L (17-59); Albumin 3.7 g/dl (3.5-5.0); Alkaline Phosphatase 81 U/L (38-126); Blood Urea Nitrogen 32 mg/dl (9-20); Calcium 9.4 mg/dl (8.4-10.2); Carbon Dioxide 25 mmol/L (22-30); Chloride 106 mmol/L (98-107); Estimated Creatinine Clearance 43 ml/min; Glucose 122 mg/dl (70-99); Potassium 4.4 mmol/L (3.5-5.1); Sodium 141 mmol/L (135-145); Total Bilirubin 0.6 mg/dl (0.2-1.3); Total Protein 6.1 g/dl (6.3-8.2); eGFR > 60.00
[2024-08-16 22:27] LABS: Troponin I 0.019 ng/ml
[2024-08-16 22:31] LABS: Lactic Acid 1.1 mmol/L (0.7-2.0)
[2024-08-16 22:57] LABS: NT-proBNP 388 pg/ml
--- NOTE | 2024-08-17 00:05 | RR ---
This RN walked in on pt laying flat with foamy secretions coming from mouth with difficulty clearing secretions. Rapid response called at 2138. BP 145/88, HR 99, SpO2 88% on room air, placed pt on 2L O2 NC SpO2 93%, temp axillary 98.8, temp rectal
100.6, glucose 117. Moved pt to sit up in bed and suctioned pt at bedside with improvement to respond to questions. JESS Penaloza ordered portable CXR, CBC, BMP, Lactic, speech/swallow eval, NPO status. Will continue to monitor pt.
--- NOTE | 2024-08-17 00:47 | PTCARENOTE ---
This RN went to check on pt and noticed both eyes blood shot, worse from beginning of shift. Pt nonsensical communication at baseline and unable to state eye pain or vision changes. JESS Penaloza notified of this. No new orders at this time.
[2024-08-17 03:00] VITALS: BP 107/59
[2024-08-17] MEDS: SYNTHROID PO (05:22)
[2024-08-17 08:39] VITALS: BP 163/63
--- NOTE | 2024-08-17 08:40 | PTOTSP ---
Speech Language Pathology
Pt seen for clinical bedside swallow evaluation. When [employer] entered room, gurgling breath sounds noted. Suctioned behind base of tongue for significant amount of frothy secretions. Question if pt is not swallowing saliva. P.O. trials of puree and
thin liquids provided. No overt immediate cough, but pt is at high risk for silent aspiration.
Recommend:
(1) VSE
(2) Strict NPO pending VSE
(3) Oral care 4x/day with suctioning as needed
(4) Non-oral meds
(5) [employer] to continue to follow
[2024-08-17] MEDS: NAMENDA PO (09:19)
[2024-08-17 09:45] VITALS: BP 171/111; PULSE 94; O2SAT 98
--- NOTE | 2024-08-17 10:59 | W.PN.UPDATE ---
Update Note
Progress Note Update
Pt seen, resting in bed, asleep. Pt awoke briefly, appeared calm but disoriented, unable to answer questions. Pt did not receive all HS meds last night; rapide response was called and pt was suctioned for approximately 50 mls of white secretions,
concern for aspiration. Pt NPO today. Aricept and Namenda were resumed in addition to Seroquel 12.5 mg HS, but pt currently unable to take them.
Imp: Dementia with agitation
Rec: continue trial of Seroquel low dose at HS prn, in addition to resumed Aricept/Namenda, when pt able to take po meds
will follow
[2024-08-17 11:28] VITALS: BP 152/64
--- NOTE | 2024-08-17 12:05 | HOSPNOTE ---
Addendum entered by Valentina [facility] RN 08/17/24 14:10:
Spoke with family and Attending and the patient will be on comfort care and will continue to follow.
Original Note:
Spoke with daughter Angie and she is on her way to the hospital and will call me when she arrives and we will meet to discuss hospice and the philosophy.
--- NOTE | 2024-08-17 13:05 | W.PN.HOSP.TC ---
Today's Communication/Plan
-
Comfort care.
Assessment / Plan
Assessment / Plan
Impression:
Patient is an 83y M with PMH significant for senile dementia, prior CVA and hypertension who presents to ED for evaluation of recent increase in confusion, gait dysfunction and frequent falls.
Progressive dementia
Agitation.
Ambulatory dysfunction with frequent falls
Accelerated hypertension/hypertensive urgency likely secondary to agitation
Aspiration syndrome
Other conditions:
Chronic diarrhea
ASCVD.
Benign hypertension
Hypothyroidism
Hypothyroidism
BPH
GERD
Plan:
Patient is 83 years old male with advanced dementia, severe aspiration syndrome, other comorbidities not limited to ASCVD, hypertension, hypothyroidism. Has been progressively declining since admission to the hospital. Poor oral intake with
clinical symptoms of severe aspiration. Rapidly deteriorating mentation and currently lethargic with poor response to verbal stimuli.
In discussion with patient's family ( and daughter at the bedside) and D with rapid deterioration open overall failure to thrive, risk not limited to severe aspiration syndrome and hypoxic respiratory failure, patient would be appropriate for
hospice consultation
Will be initiated on comfort care for close management of agitation,, pain, secretions.
Anticipated Discharge: 24 - 48 hours
Subjective/Interval History
-
Date of Service: August 17, 2024
Objective Data
-
Vital Signs:
Vital Signs
Temp Pulse Resp BP Pulse Ox
98.5 F 73 16 152/64 92
08/17/24 03:00 08/17/24 11:28 08/17/24 11:28 08/17/24 11:28 08/17/24 11:28
I&O
08/16/24 08/17/24 08/18/24
06:59 06:59 06:59
Intake Total 120 / 120 120 / 120 0 / 0
Balance 120 / 120 120 / 120 0 / 0
Physical Exam
-
General: Well Developed, No Apparent Distress and Other (Disheveled)
HEENT: Normocephalic, Atraumatic and Moist Mucous Membranes
Respiratory: Clear to Auscultation
Cardiac: Regular Rhythm and S1/S2; Negative Murmur, Rub or Gallop
GI: Soft, Nontender, Nondistended and Normal Bowel Sounds; Negative Organomegaly
Rectal: Deferred by Provider
Musculoskeletal: No Clubbing, No Cyanosis and No Edema
Skin: Negative Rash
Neuro: Other (Lethargic, poorly responsive)
--- NOTE | 2024-08-17 15:00 | CHAP ---
Msgr. Thomas Rider of [facility] in [place] gave Jame the Sacrament of the Sick and an Apostolic Pardon. Exact time uncertain.
--- NOTE | 2024-08-17 15:29 | PTCARENOTE ---
pt to transfer to 2120, hospice, report given. Pt transferred with belongings.
[2024-08-17 16:08] VITALS: BP 144/63
[2024-08-17] MEDS: TYLENOL/FEVERALL 650 MG RECTAL (16:20)
[2024-08-17] MEDS: MORPHINE SULFATE 2 MG IV ×3 (16:20→23:56)
[2024-08-17] MEDS: ROBINUL 0.2 MG IV (16:21)
--- NOTE | 2024-08-17 16:31 | CM ---
Spoke with [facility] .
Family has decided for comfort care.
Pt moved to private room .
PLAN Continue comfort care
--- NOTE | 2024-08-17 18:07 | PTCARENOTE ---
pt transferred from 3W to 2N. family at bedside. prn medications given at bedside. rectal tynelol given. if change overnight, please call secondary contact(daughter) first.
[2024-08-17 19:08] VITALS: BP 146/55
[2024-08-17] MEDS: FLOMAX PO (22:21)
[2024-08-18] MEDS: MORPHINE SULFATE 2 MG IV ×6 (04:30→23:20)
[2024-08-18 07:30] VITALS: BP 151/86
[2024-08-18] MEDS: ROBINUL 0.2 MG IV ×2 (07:55→15:24)
[2024-08-18] MEDS: ATIVAN 2 MG IV ×2 (09:48→15:24)
--- NOTE | 2024-08-18 11:42 | W.PN.UPDATE ---
Update Note
Progress Note Update
this chart was reviewed and i spoke with nursing. i did not see patient . hospice being considered. patient is on comfort care. he is calm. he is not verbal. psych meds have been dc'ed . there does not at this point seem to be need for psych
input. psych will sign off. please call us if you would like us to reassess.
--- NOTE | 2024-08-18 11:47 | HOSPNOTE ---
Patient is on comfort. Will continue to follow for support.
--- NOTE | 2024-08-18 13:09 | CM ---
Patient seen at bedside with and daughter.
Rec tt from [facility] re: LOC changed to inpatient 08/17
IMM in chart
PLAN: Patient on comfort care
--- NOTE | 2024-08-18 15:32 | W.PN.HOSP.TC ---
Today's Communication/Plan
-
Continue comfort care
Assessment / Plan
Assessment / Plan
Impression:
Patient is an 83y M with PMH significant for senile dementia, prior CVA and hypertension who presents to ED for evaluation of recent increase in confusion, gait dysfunction and frequent falls.
Progressive dementia
Agitation.
Ambulatory dysfunction with frequent falls
Accelerated hypertension/hypertensive urgency likely secondary to agitation
Aspiration syndrome
Other conditions:
Chronic diarrhea
ASCVD.
Benign hypertension
Hypothyroidism
Hypothyroidism
BPH
GERD
Plan:
Patient is 83 years old male with advanced dementia, severe aspiration syndrome, other comorbidities not limited to ASCVD, hypertension, hypothyroidism. Has been progressively declining since admission to the hospital. Poor oral intake with
clinical symptoms of severe aspiration. Rapidly deteriorating mentation and currently lethargic with poor response to verbal stimuli.
In discussion with patient's family ( and daughter at the bedside) and D with rapid deterioration open overall failure to thrive, risk not limited to severe aspiration syndrome and hypoxic respiratory failure, patient would be appropriate for
hospice consultation
Will be initiated on comfort care for close management of agitation,, pain, secretions.
Anticipated Discharge: 24 - 48 hours
Subjective/Interval History
-
Date of Service: August 18, 2024
Objective Data
-
Vital Signs:
Vital Signs
Temp Pulse Resp BP Pulse Ox
98.7 F 50 10 151/86 97
08/18/24 07:30 08/18/24 07:30 08/18/24 07:30 08/18/24 07:30 08/18/24 10:02
I&O
08/17/24 08/18/24 08/19/24
06:59 06:59 06:59
Intake Total 120 / 120 0 / 0
Balance 120 / 120 0 / 0
Physical Exam
-
General: Well Developed, No Apparent Distress and Other (Disheveled)
HEENT: Normocephalic, Atraumatic and Moist Mucous Membranes
Respiratory: Clear to Auscultation
Cardiac: Regular Rhythm and S1/S2; Negative Murmur, Rub or Gallop
GI: Soft, Nontender, Nondistended and Normal Bowel Sounds; Negative Organomegaly
Rectal: Deferred by Provider
Musculoskeletal: No Clubbing, No Cyanosis and No Edema
Skin: Negative Rash
Neuro: Other (Lethargic, poorly responsive)
[2024-08-18] MEDS: FLOMAX PO (20:56)
[2024-08-19] MEDS: MORPHINE SULFATE 2 MG IV ×4 (02:26→15:11)
[2024-08-19 07:30] VITALS: BP 180/79
[2024-08-19] MEDS: MORPHINE 100 IV (08:11)
--- NOTE | 2024-08-19 08:21 | PTCARENOTE ---
per end of life assessment protocol. pt met parameters to start morphine gtt. pt placed on step 2 gtt per orders by this nurse. see MAR for proper documentation
[2024-08-19] MEDS: TYLENOL/FEVERALL 650 MG RECTAL ×2 (08:23→20:08)
--- NOTE | 2024-08-19 10:09 | CM ---
Patient remains on comfort care
per nursing start morphine gtt
CM made available for emotional support
PLAN: Comfort care
[2024-08-19] MEDS: ROBINUL 0.2 MG IV (11:27)
[2024-08-19] MEDS: ATIVAN 2 MG IV (11:27)
--- NOTE | 2024-08-19 15:25 | W.PN.HOSP.TC ---
Today's Communication/Plan
-
Continue comfort care
Assessment / Plan
Assessment / Plan
Impression:
Patient is an 83y M with PMH significant for senile dementia, prior CVA and hypertension who presents to ED for evaluation of recent increase in confusion, gait dysfunction and frequent falls.
Progressive dementia
Agitation.
Ambulatory dysfunction with frequent falls
Accelerated hypertension/hypertensive urgency likely secondary to agitation
Aspiration syndrome
Other conditions:
Chronic diarrhea
ASCVD.
Benign hypertension
Hypothyroidism
Hypothyroidism
BPH
GERD
Plan:
Patient is 83 years old male with advanced dementia, severe aspiration syndrome, other comorbidities not limited to ASCVD, hypertension, hypothyroidism. Has been progressively declining since admission to the hospital. Poor oral intake with
clinical symptoms of severe aspiration. Rapidly deteriorating mentation and currently lethargic with poor response to verbal stimuli.
In discussion with patient's family ( and daughter at the bedside) and D with rapid deterioration open overall failure to thrive, risk not limited to severe aspiration syndrome and hypoxic respiratory failure, patient would be appropriate for
hospice consultation
Will be initiated on comfort care for close management of agitation,, pain, secretions.
Anticipated Discharge: 24 - 48 hours
Subjective/Interval History
-
Date of Service: August 19, 2024
Objective Data
-
Vital Signs:
Vital Signs
Temp Pulse Resp BP Pulse Ox
100.6 F H 100 14 180/79 91
08/19/24 07:30 08/19/24 07:30 08/19/24 07:30 08/19/24 07:30 08/19/24 07:30
I&O
08/18/24 08/19/24 08/20/24
06:59 06:59 06:59
Intake Total 0 / 0 0 / 0
Balance 0 / 0 0 / 0
Physical Exam
-
General: Well Developed and No Apparent Distress
HEENT: Normocephalic, Atraumatic and Moist Mucous Membranes
Respiratory: Clear to Auscultation
Cardiac: Regular Rhythm and S1/S2; Negative Murmur, Rub or Gallop
GI: Soft, Nontender, Nondistended and Normal Bowel Sounds; Negative Organomegaly
Rectal: Deferred by Provider
Musculoskeletal: No Clubbing, No Cyanosis and No Edema
Skin: Negative Rash
Neuro: Nonfocal/Grossly Intact
[2024-08-19 19:00] VITALS: BP 115/70
[2024-08-19] MEDS: FLOMAX PO (20:09)
[2024-08-20 07:25] VITALS: BP 98/48
--- NOTE | 2024-08-20 11:03 | CM ---
Patient seen with family at bedside.
CM made available for support-On comfort care.
PLAN: Remains on comfort care
--- NOTE | 2024-08-20 13:39 | W.PN.HOSP.TC ---
Today's Communication/Plan
-
Continue comfort care.
Remains on morphine drip.
Discussed with patient's family at the bedside.
Assessment / Plan
Assessment / Plan
Impression:
Patient is an 83y M with PMH significant for senile dementia, prior CVA and hypertension who presents to ED for evaluation of recent increase in confusion, gait dysfunction and frequent falls.
Progressive dementia
Agitation.
Ambulatory dysfunction with frequent falls
Accelerated hypertension/hypertensive urgency likely secondary to agitation
Aspiration syndrome
Other conditions:
Chronic diarrhea
ASCVD.
Benign hypertension
Hypothyroidism
Hypothyroidism
BPH
GERD
Plan:
Patient is 83 years old male with advanced dementia, severe aspiration syndrome, other comorbidities not limited to ASCVD, hypertension, hypothyroidism. Has been progressively declining since admission to the hospital. Poor oral intake with
clinical symptoms of severe aspiration. Rapidly deteriorating mentation and currently lethargic with poor response to verbal stimuli.
In discussion with patient's family ( and daughter at the bedside) and D with rapid deterioration open overall failure to thrive, risk not limited to severe aspiration syndrome and hypoxic respiratory failure, patient would be appropriate for
hospice consultation
Will be initiated on comfort care for close management of agitation,, pain, secretions.
Anticipated Discharge: 24 - 48 hours
Subjective/Interval History
-
Date of Service: August 20, 2024
Objective Data
-
Vital Signs:
Vital Signs
Temp Pulse Resp BP Pulse Ox
101.5 F H 110 14 98/48 95
08/20/24 07:25 08/20/24 07:25 08/20/24 07:25 08/20/24 07:25 08/20/24 07:25
I&O
08/19/24 08/20/24 08/21/24
06:59 06:59 06:59
Intake Total 0 / 0 0 / 0
Balance 0 / 0 0 / 0
Physical Exam
-
General: Well Developed and No Apparent Distress
HEENT: Normocephalic, Atraumatic and Moist Mucous Membranes
Respiratory: Clear to Auscultation
Cardiac: Regular Rhythm and S1/S2; Negative Murmur, Rub or Gallop
GI: Soft, Nontender, Nondistended and Normal Bowel Sounds; Negative Organomegaly
Rectal: Deferred by Provider
Musculoskeletal: No Clubbing, No Cyanosis and No Edema
Skin: Negative Rash
Neuro: Nonfocal/Grossly Intact
[2024-08-20] MEDS: MORPHINE SULFATE 2 MG IV (14:20)
[2024-08-20] MEDS: TYLENOL/FEVERALL 650 MG RECTAL (14:25)
--- NOTE | 2024-08-20 15:32 | W.PN.DEATH ---
Pronouncement of
-
Called to see patient to pronounce.
No spontaneous heart tones or respirations noted.
Patient not responsive to verbal stimuli.
Patient is pronounced .
Time of : 14:45
Date of : 08/20/24
Cause of : Advanced dementia with failure to thrive.
Family Notified: Yes
--- NOTE | 2024-08-20 16:05 | PTCARENOTE ---
Pt passed 1445; post mortem care when family left the room.
== END 2024-08-20 16:44 | disposition expired | DRG 884 ==
LOC: 2 NORTH 19:00
PROVIDERS: Emergency Medicine; Nurse Practitioner Family; ADMITTING PHYSICIAN Hospitalist; ATTENDING PHYSICIAN Internal Medicine; CONSULT PHYSICIAN Psychiatry & Neurology Psychiatry; EMERGENCY PHYSICIAN Emergency Medicine; FAMILY PHYSICIAN Internal Medicine
DX: F01.511 Vascular dementia, unspecified severity, with agitation (principal); R62.7 Adult failure to thrive; I10 Essential (primary) hypertension; E03.9 Hypothyroidism, unspecified; K21.9 Gastro-esophageal reflux disease without esophagitis; I25.10 Atherosclerotic heart disease of native coronary artery without angina pectoris; N40.0 Benign prostatic hyperplasia without lower urinary tract symptoms; Z51.5 Encounter for palliative care; Z87.891 Personal history of nicotine dependence; Z11.52 Encounter for screening for COVID-19
CPT/HCPCS: 51701; 70450; 71045; 80048; 80053; 81003; 81015; 82550; 82962; 83605; 83880; 84443; 84484; 85025; 85027; 85610; 85730; 87502; 87811; 92610; 93005; 96361; 96374; 97110; 99285